=== PATIENT | male | born 1970 | race Caucasian/White ===

== ENCOUNTER 2017-02-20 16:05 | Emergency (ER) | payer SELFPAY ==
[~2017-02-20] VITALS: Ht 180.3 cm; Wt 86.2 kg
--- NOTE | 2017-02-20 16:22 | NUR ---
PT IS IN ROOM #2A. DR SNOW EVALUATED THE PT.
[2017-02-20] MEDS ORDERED: ALBUTEROL SULFATE 2.5 MG/3 ML NEBU NEB ONE (16:30)
[2017-02-20] MEDS ORDERED: IPRATROPIUM BROMIDE 0.5 MG/2.5 ML NEBU NEB ONE (16:30)
[2017-02-20] MEDS ORDERED: ALBUTEROL SULFATE 2.5 MG/3 ML NEBU ONE (16:36)
[2017-02-20] MEDS ORDERED: IPRATROPIUM BROMIDE 0.5 MG/2.5 ML NEBU ONE (16:36)
[2017-02-20 16:56] VITALS: BP 123/71
--- NOTE | 2017-02-20 16:57 | NUR ---
PT WAS D/C TO HOME. D/C INSTRUCTIONS GIVEN TO THE PT.
== END 2017-02-20 16:57 | disposition home or self-care (01) ==
LOC: ER 16:05
DX: S20.219A Contusion of unspecified front wall of thorax, initial encounter (principal); V53.5XXA Driver of pick-up truck or van injured in collision with car, pick-up truck or van in traffic accident, initial encounter; Y93.89 Activity, other specified; Y99.8 Other external cause status; Y92.89 Other specified places as the place of occurrence of the external cause
CPT/HCPCS: 71010; A4663; J3590